=== PATIENT | female | born 1980 | race Caucasian/White ===

== ENCOUNTER → 2016-08-04 | Day surgery (SDC) | payer OTHER ==
[~2016-08-04] VITALS: Ht 154.9 cm; Wt 61.2 kg
--- NOTE | 2016-08-04 19:54 | Operative Report ---
Operative/Inv Procedure Report Surgery Date: 08/04/16 Name of Procedure: hysteroscopy, dilation and curettage, novasure ablation Pre-Operative Diagnosis: menorrhagia, suspicion of endometrial polyp Post-Operative Diagnosis: same Estimated Blood Loss: scant Surgeon/Night Order Selector: RAYSA DAVIS DO Anesthesia: laryngeal mask airway IV Fluids: 800 Urine Output: na Drains: na Specimens: emc Complications: none Condition: good Operative Indication: The patient is a 36-year-old 2 para 2 who presents with menorrhagia. The patient is intolerant to hormonal therapy. She is post-tubal ligation. She declines Mirena IUD or hysterectomy and desires to proceed with definitive surgical management ablation. Risks, benefits, alternatives were discussed including the risk of bleeding, infection, uterine perforation, incomplete procedure,, need for additional procedure should competition occur. The patient had stated verbal understanding of all the above and desires to proceed. Operative/Procedure Note Note: The patient was taken to the operating room where anesthesia was obtained without difficulty. She is placed in the dorsal lithotomy position and examined under anesthesia. She had an anteverted uterus without mass. No adnexal masses were noted. She was then prepared and draped in usual sterile fashion. A weighted speculum was placed posteriorly and a [place] retractor was placed anteriorly in the vagina. Paracervical block was performed with 10 mL of 1% lidocaine plain. The anterior lip of the cervix was then grasped with single- tooth tenaculum. Cervical length was obtained and noted to be 2 cm. Uterine sound length was noted to be 7.5 cm. The patient was dilated to 19 Prydeinig. The diagnostic hysteroscopy was then performed using normal saline as distention media. Despite finishing menses just 2 days ago the patient was noted to have a very thick endometrium. Endometrium is obscured bilateral tubal ostia. No endometrial polyp or fibroids were noted however. Curettage was then performed with the Woodard Essure device. The hysteroscope was then removed and using the endosure device uterine length was determined to be 4.5 cm and the NovaSure device was inserted. Uterine width determined to be 4.6 cm. After passing the CO2 perforation test the ablation was performed without difficulty. All instruments were removed from the patient's uterus, cervix, vagina. Hemostasis of tenaculum sites was obtained with silver nitrate. All sponge, lap counts, needle counts were correct 2 the patient was taken to the recovery area in stable condition. Findings were relayed with the patient's family members
== END ==
LOC: STS 01:08
DX: N92.0 Excessive and frequent menstruation with regular cycle (principal)
CPT/HCPCS: 88305; J2250; J3250

== ENCOUNTER 2017-05-23 19:04 | Emergency (ER) | payer OTHER ==
[~2017-05-23] VITALS: Ht 154.9 cm; Wt 63.0 kg
--- NOTE | 2017-05-23 20:24 | ED THROAT/DENTAL COMPLAINT ---
History of Present Illness General Chief Complaint: Sore Throat, Dental Pain Stated Complaint: TOOTH INFECTION Source: patient Exam Limitations: no limitations Vital Signs & Intake/Output Vital Signs & Intake/Output Vital Signs Date Time Temp Pulse Resp B/P B/P Pulse O2 O2 Flow FiO2 Mean Ox Delivery Rate 05/23 2125 97.2 64 18 167/96 98 Room Air 05/23 1938 97.8 71 16 162/109 98 Room Air Allergies Coded Allergies: NO KNOWN ALLERGIES (10/09/12) Reconcile Medications Ketorolac Tromethamine 10 MG TABLET 1 TAB PO TID PRN PAIN RECEIVED IM IN ER Triage Note: PT PRESENTS TO THE ER C/O DENTAL PAIN BACK LOWER MOLAR. PER PT SHE WENT TO THE WALK IN AND THE PA SENT HER TO THE ER. PT STATES THAT HER THROAT ALSO IS PAINFUL.. PT WAS SCENE AT THE DENTIST BUT PER PT THEY COULD NOT IDENTIFY THE CAUSE. PT STATES THAT PAIN /10. PT HAS SWELLING NOTED TO THE LEFT SIDE OF FACE.. Triage Nurses Notes Reviewed? yes Onset: Gradual Duration: constant Timing: recent history Severity: moderate Severity Numbers: 5 : No Patient currently breastfeeds: No HPI: Patient is a 37-year-old female who presents emergency room with concerns of 2 weeks of left lower dental molar pain and swelling patient has been seen on multiple occasions by her dentist in prescribed 2 azithromycin prescriptions with no relief of pain and swelling yesterday patient saw an oral surgeon prescribed Augmentin and ibuprofen patient presents to emergency room with worsening pain Patient can tolerate by mouth denies any throat swelling or pain denies any trismus Patient is compliant with Augmentin She does note of a fever this morning no Tylenol was administered Patient did not take her Tylenol with Codeine Past History Travel History Traveled to [place] past 21 day No Medical History Any Pertinent Medical History? see below for history Psychiatric: anxiety Tetanus Vaccine: 08/01/12 Surgical History Surgical History: non-contributory Psychosocial History Who do you live with Significant Other Services at Home None What is your primary language Occitan Tobacco Use: Never used Family History Hx Contributory? No Review of Systems Review of Systems Constitutional: Reports: see HPI, fever. EENTM: Reports: see HPI, mouth pain, tooth pain. Respiratory: Reports: no symptoms. Cardiovascular: Reports: no symptoms. GI: Reports: no symptoms. Genitourinary: Reports: no symptoms. Musculoskeletal: Reports: no symptoms. Skin: Reports: no symptoms. Neurological/Psychological: Reports: no symptoms. Hematologic/Endocrine: Reports: no symptoms. Immunologic/Allergic: Reports: no symptoms. All Other Systems: Reviewed and Negative Physical Exam Physical Exam General Appearance: no apparent distress, alert, comfortable Head: atraumatic Eyes: Bilateral: normal appearance. Ears: Bilateral: canal normal, Tympanic normal. Nose: normal inspection Mouth/Throat: pharynx normal Neck: normal inspection Cardiovascular/Respiratory: normal breath sounds, normal peripheral pulses Neurologic/Psych: no motor/sensory deficits, awake, alert Skin: intact, normal color, warm/dry Diagram Dental: 1) Noted mild gum swelling and point tenderness with no active discharge Oropharynx was unremarkable no swelling no trismus no submandibular swelling Multiple dental caries noted Core Measures ACS in differential dx? No Sepsis Present: No Sepsis Focused Exam Completed? No Progress Differential Diagnosis: carious tooth, epiglottitis, Ludwigs angina, meningitis, odontogenic abscess, mckenzie-tonsillar abscess, pharyngeal for. body, stomatitis/ gingivitis, strep pharyngitis, tooth fracture Plan of Care: Orders Procedure Date/time Status THROAT CULTURE W/QUICK STREP 05/23 2012 Active Current Medications Sig/Esteban Start time Last Medication Dose Stop Time Status Admin Ketorolac 30 MG ONCE ONE 05/23 2129 UNVr Tromethamine 05/23 2130 (Toradol) Patient was afebrile nontoxic-appearing negative initial strep culture pending no concerns of Luis Manuel angina or peritonsillar abscess on exam Patient is on a 24-hour history initially of Augmentin which I strongly advised patient to continue Patient was given Toradol She was strongly advised to return to emergency room if symptoms worsen or she develops a new concerning symptom Upon discharge patient looks well no apparent distress and will comply discharge instructions and had no questions Departure Departure Disposition: HOME OR SELF CARE Condition: Stable Clinical Impression Primary Impression: Gum abscess Secondary Impressions: Dental caries Referrals: Kavitha Osborn MD (PCP/Family) Additional Instructions: As discussed continue your previously prescribed Augmentin for the full course, begin the prescription of Toradol for inflammation and pain and discontinue the ibuprofen use Follow-up with your dental surgeon in 2 days If symptoms worsen or if YOU develop new concerning symptom return to emergency room Prescriptions waiting at [facility] Departure Forms: Customer Survey General Discharge Information Prescriptions: Current Visit Scripts Ketorolac Tromethamine 1 TAB PO TID PRN PAIN #12 TAB RECEIVED IM IN ER
[2017-05-23 21:26] VITALS: BP 167/96
[2017-05-23] MEDS ORDERED: KETOROLAC TROME10 M1 PO (21:32)
== END 2017-05-23 21:58 ==
LOC: ERH 19:04
DX: K05.319 Chronic periodontitis, localized, unspecified severity (principal); K02.9 Dental caries, unspecified
CPT/HCPCS: 96372; J1885